=== PATIENT | female | born 2000 | race Caucasian/White ===

== ENCOUNTER → 2024-10-21 | Outpatient (CLI) | payer MEDICAID, SELFPAY ==
[2024-10-21 11:47] LABS: Absolute Lymphocyte Count 2.66 X10^3/uL (0.83-4.51); Absolute Neutrophil Count 4.9 X10^3/uL (2.0-7.7); Basophil# 0.07 X10^3/uL; Basophil% 0.8 % (0-1); Eosinophil# 0.12 X10^3/uL; Eosinophils% 1.4 % (0-5); Hematocrit 40.6 % (37-47); Hemoglobin 13.5 g/dL (12.0-15.0); Lymphocyte # 2.66 X10^3/ul (0.83-4.51); Lymphocyte % 31.9 % (19-41); Mean Corp Hgb Conc 33.3 g/dL (32-36); Mean Corpuscular Hgb 29.8 pg (27.0-32.0); Mean Corpuscular Volume 89.6 fL (81-99); Mean Platelet Vol. 9.4 fl (6.2-12.0); Monocyte# 0.52 X10^3/uL; Monocyte% 6.2 % (0-10); NRBC Flagged by Analyzer 0 % (0-5); Neutrophil # 4.94 X10^3/uL (2.7-7.7); Neutrophil % 59.3 % (47-70); Platelet Count 315 K/mm3 (150-450); RBC Distribution Width CV 12.2 % (11.6-14.6); RBC Distribution Width SD 40.1 fl (35.1-43.9); Red Blood Count 4.53 M/mm3 (4.2-5.4); White Blood Count 8.3 K/mm3 (4.4-11.0)
[2024-10-21 12:27] LABS: ALB/GLOB Ratio 1.4 RATIO (0.9-2.4); AST(SGOT) 21 U/L (<=31); Alanine Aminotransfer ALT/SGPT 16 U/L (<=34); Albumin, Serum 4.1 g/dL (3.5-5.0); Alkaline Phosphatase 66 U/L (35-104); Anion Gap 10 (5-15); BUN 15 mg/dL (4-19); BUN/Creat Ratio 21.2 RATIO (10-20); Calcium,Total 9.1 mg/dL (7.6-11.0); Carbon Dioxide 24.4 mmol/L (21.0-32.0); Chloride 105 mmol/L (98-108); Creatinine, Serum 0.72 mg/dL (0.70-1.20); EST Glomerular Filtration Rate 121 (>60); Globulin 2.8 g/dL (2.2-4.2); Glucose 91 mg/dL (70-99); Potassium 4.2 mmol/L (3.3-5.1); Protein, Total 6.9 g/dL (5.9-8.4); Sodium Level 139 mmol/L (133-145); Total Bilirubin 0.35 mg/dL (0.00-1.30)
== END | disposition home or self-care (01) ==
LOC: LAB 11:06
DX: R53.83 Other fatigue (principal)
CPT/HCPCS: 36415; 80053; 84443; 85025

== ENCOUNTER → 2024-11-21 | Outpatient (CLI) | payer MEDICAID, SELFPAY ==
[2024-11-21 10:20] LABS: Absolute Lymphocyte Count 2.79 X10^3/uL (0.83-4.51); Absolute Neutrophil Count 3.7 X10^3/uL (2.0-7.7); Basophil# 0.05 X10^3/uL; Basophil% 0.7 % (0-1); Eosinophil# 0.12 X10^3/uL; Eosinophils% 1.7 % (0-5); Hematocrit 39.6 % (37-47); Hemoglobin 13.1 g/dL (12.0-15.0); Lymphocyte # 2.79 X10^3/ul (0.83-4.51); Lymphocyte % 38.9 % (19-41); Mean Corp Hgb Conc 33.1 g/dL (32-36); Mean Corpuscular Hgb 29.2 pg (27.0-32.0); Mean Corpuscular Volume 88.2 fL (81-99); Mean Platelet Vol. 9.4 fl (6.2-12.0); Monocyte# 0.46 X10^3/uL; Monocyte% 6.4 % (0-10); NRBC Flagged by Analyzer 0 % (0-5); Neutrophil # 3.73 X10^3/uL (2.7-7.7); Platelet Count 275 K/mm3 (150-450); RBC Distribution Width CV 11.6 % (11.6-14.6); RBC Distribution Width SD 37.2 fl (35.1-43.9); Red Blood Count 4.49 M/mm3 (4.2-5.4); White Blood Count 7.2 K/mm3 (4.4-11.0)
[2024-11-21 11:05] LABS: Hemoglobin A1c 5.1 % (<=5.6)
[2024-11-21 11:55] LABS: ALB/GLOB Ratio 1.4 RATIO (0.9-2.4); AST(SGOT) 20 U/L (<=31); Alanine Aminotransfer ALT/SGPT 13 U/L (<=34); Alkaline Phosphatase 67 U/L (35-104); Anion Gap 12 (5-15); BUN 12 mg/dL (4-19); BUN/Creat Ratio 16.9 RATIO (10-20); Chloride 105 mmol/L (98-108); Cholesterol 191 mg/dL (<=190); Creatinine, Serum 0.72 mg/dL (0.70-1.20); EST Glomerular Filtration Rate 121 (>60); Globulin 2.9 g/dL (2.2-4.2); Glucose 89 mg/dL (70-99); HIV Nonreactive (Nonreactive); High Density Lipoprotein 54 mg/dL; Low Density Lipoprotein Calc. 123 mg/dL; Potassium 3.7 mmol/L (3.3-5.1); Sodium Level 140 mmol/L (133-145); Syphilis Antibodies Nonreactive (Nonreactive); Triglycerides 73 mg/dL; Very Low Density Lipoprotein 15 mg/dL (5-40); cholesterol:hdl ratio screen 3.57
[2024-11-21 12:12] LABS: Iron 44 ug/dL (50-170); Iron Binding Capacity,Total 414 ug/dL (250-450); Iron Binding Capacity,Unsat 370 ug/dL (228-428)
[2024-11-21 12:13] LABS: Ferritin 14 ng/mL (22-378); Vitamin B12 315 pg/mL (180-914); Vitamin D,25 Hydroxy 25.7 ng/mL (30-100)
[2024-11-23 09:08] LABS: HEPATITIS B SURFACE AG Negative (Negative); Hep C Antibodies Non Reactive (Non Reactive); Hepatitis A IgM Antibody Negative (Negative); Hepatitis B Core AB IgM Negative (Negative)
== END | disposition home or self-care (01) ==
PROVIDERS: Nurse Practitioner Family
DX: Z01.419 Encounter for gynecological examination (general) (routine) without abnormal findings (principal); Z11.3 Encounter for screening for infections with a predominantly sexual mode of transmission; R53.83 Other fatigue; R00.2 Palpitations; Z13.220 Encounter for screening for lipoid disorders; Z13.1 Encounter for screening for diabetes mellitus
CPT/HCPCS: 36415; 80053; 80061; 80074; 82306; 82607; 82728; 83036; 83540; 83550; 83735; 84443; 85025; 86703; 86780

== ENCOUNTER 2024-12-08 09:40 | Outpatient (RCR) | payer MEDICAID, SELFPAY ==
--- NOTE | 2024-12-08 09:00 | BH.SGPN.GN ---
Behaviors/Verbalizations/Mental Status: [] ?Eye contact is good. Motor activity is appropriate. Appearance is casual. Speech is Appropriate. Mood is anxious and depressed . Affect is constricted. Thoughts are linear and logical. No evidence of psychosis. Reviewed daily check in sheet and no reports of suicidal ideations or intent. Client Response/Progress/Benefit: [] ?Pt was an attentive though passive participant in group discussions. Attentive. Pt's first day in IOP tx and pt opted not to share today. Appearing anxious but was listening to fellow group participants as she shared. Benefited from group support, encouragement, and feedback. Will continue in IOP to prevent decompensation, promote mood stability, and increase healthy coping knowledge. Narrative Note: []
--- NOTE | 2024-12-08 10:10 | BH.SGPN.GN ---
Behaviors/Verbalizations/Mental Status: [] Eye contact is good. Motor activity is appropriate. Appearance is casual. Speech is Appropriate. Mood is euthymic. Affect is congruent. Thoughts are linear and logical. No evidence of psychosis. Client Response/Progress/Benefit: [] Pt was an active participant in group discussions. Attentive during psychoeducation on the 4 communication styles (Passive, Passive-Aggressive, Aggressive, and Assertive) and the obstacles to effective communication. Contributed during interactive discussion on the benefits of communicating effectively. Worked well with peers to identify the benefits and disadvantages to the different communication styles. Pt believes that she is primarily passive and able to connect impact has on her mental health. Benefited from increased understanding of communication styles and how these can impact effective communication. Will continue in IOP to increase healthy coping skills, challenge negative thoughts, and prevent decompensation.
--- NOTE | 2024-12-08 11:00 | BH.SGPN.GN ---
Behaviors/Verbalizations/Mental Status: []Pt alert and oriented, casually dressed and groomed. Eye contact good. Motor activity appropriate. Speech within normal limits. Affect congruent, mood anxious. Thoughts linear, logical, no signs of hallucinations or delusions. Client Response/Progress/Benefit: [] Pt responded well to session AEB Pt listening attentively to others and providing input during group discussion on the pay offs and costs of the different communication styles. Pt able to connect how current communication style impacts mental health. Connected with peers? comments about the importance of using assertive communication. Pt seemed to benefit from increasing awareness of healthy strategies to improve communication and worked with peers during the experiential activity to practice assertive communication. Pt did well to ask questions and give feedback during the activity. Will continue IOP tx to prevent decompensation, maintain safety, and gain healthy coping skills. ? Narrative Note: []
--- NOTE | 2024-12-10 09:00 | BH.SGPN.GN ---
Behaviors/Verbalizations/Mental Status: [] Client alert and oriented, casual appearance. Eye contact good. Motor activity appropriate. Speech within normal limits. Affect congruent, mood euthymic. Thoughts linear, logical, no signs of hallucinations or delusions. Reviewed client's symptom tracker, no risk for suicidal ideation, plan, or intent. Client Response/Progress/Benefit: [] Client responded well to session AEB listening to others and sharing thoughts/feelings. Client reported mental positive was being able to handle a stressful situation yesterday by using belly breathing to regulate herself. Client noted her stressor was that her EPT benefits for [employer] was not being replenished and that led to her having to be on the phone for 2-1/2 hours to get everything situated. Client noted additional mental positive as starting her laundry and took her dog for a walk which is something that she finds to be really helpful for her mood. Client noted current emotion and is proud because today she is 4 months sober. Client noted things that help her maintain sobriety have been taking it 1 day at a time, remind herself to play the tape forward during cravings, and having a higher power. Appeared to benefit from support from peers. Will continue IOP tx to reinforce healthy coping skills, challenge distortions, and prevent decompensation. Narrative Note: []
--- NOTE | 2024-12-10 10:00 | BH.SGPN.GN ---
Behaviors/Verbalizations/Mental Status: []Client alert and oriented, casually dressed. Eye contact good. Motor activity appropriate. Speech within normal limits. Affect congruent, mood anxious and depressed. Thoughts linear, logical, no signs of hallucinations or delusions. Client Response/Progress/Benefit: [] Pt was an active participant AEB taking notes and engaging in group activity. Connected with the topic of pitfalls and listened to group discussion on barriers that prevent from choosing a healthier path to mental wellness. Group worked together to identify examples of personal pitfalls. These examples included; shutting down, not asking for help, negative thinking patterns, avoidance, and isolation. Pt benefited from group as Pt learned to better identify potential barriers to improving mental health symptoms. Identified barrier of not asking for help and shutting down. Pt will continue IOP tx to prevent decompensation, improve distress tolerance, and increase self-confidence and communication. Narrative Note: []
--- NOTE | 2024-12-10 11:05 | BH.SGPN.GN ---
Behaviors/Verbalizations/Mental Status: []Client alert and oriented, casually dressed and groomed. Eye contact good. Motor activity appropriate. Speech within normal limits. Affect congruent, mood content and euthymic. Thoughts linear, logical, no signs of hallucinations or delusions. Client Response/Progress/Benefit: [] Pt receptive of session, engaged throughout AEB Pt actively listening and contributing to discussion as well as taking notes.? Pt participated in the experiential activity and did well to communicate ideas with peers and manage emotions. Pt attentive as group processed how the emotions and perspective of the group impacted the activity. Pt did well to challenge her perspective during the activity. Group worked together to identify different coping skills to help manage pitfalls. Pt identified a pitfalls they struggle with as ruminating, self-sabotaging, and perfectionism. Pt plans to work on their pitfall by ?reminding myself that two things can be true.? Benefited from identifying personal pitfalls and strategies to overcome these pitfalls. Pt will continue IOP tx to prevent decompensation, build healthy routines and coping skills, and reduce negative thought patterns. ? Narrative Note: []
--- NOTE | 2024-12-12 09:05 | BH.SGPN.GN ---
Behaviors/Verbalizations/Mental Status: [] Eye contact is good. Motor activity is appropriate. Appearance is casual. Speech is Appropriate. Mood is euthymic. Affect is full. Thoughts are linear and logical. No evidence of psychosis. Reviewed daily check in sheet and no reports of suicidal ideations or intent Client Response/Progress/Benefit: [] Pt participated at times during the group discussions. Attentive. She has left the residential facility and moved back in with family. For the time being this has improved her mental health. ? I?m still maintaining my daily routine? which consists of meditation and other preventative skills. Benefited from group support, encouragement, and feedback. Will continue in [facility] to maintain safety, increase healthy coping, and improve functioning. Narrative Note: []
--- NOTE | 2024-12-12 09:05 | BH.SGPN.GN ---
Behaviors/Verbalizations/Mental Status: [] Eye contact is good. Motor activity is appropriate. Appearance is casual. Speech is Appropriate. Mood is euthymic. Affect is full. Thoughts are linear and logical. No evidence of psychosis. Reviewed daily check in sheet and no reports of suicidal ideations or intent Client Response/Progress/Benefit: [] Pt participated at times during the group discussions. Attentive. She has left the residential facility and moved back in with family. For the time being this has improved her mental health. ? I?m still maintaining my daily routine? which consists of meditation and other preventative skills. Benefited from group support, encouragement, and feedback. Will continue in [facility] to maintain safety, increase healthy coping, and improve functioning. Narrative Note: []
--- NOTE | 2024-12-12 09:47 | PCM.BH.PSYEV ---
Charges/Coding Behavior Health Behavior Health Psychiatric Evaluation: 99803 Psych Diag Exam w/ Medical Services Intake Vital Signs 12/12/24 11:13 Height 1.65 m Weight: 86.183 kg BP 134/88 H Pulse 90 Intake Visit Reasons: PTSD, MDD Allergies amoxicillin (From Augmentin) Adverse Reaction (Verified 12/12/24 10:58) PT UNSURE OF REACTION cephalexin (From Keflex) Adverse Reaction (Verified 12/12/24 10:58) PT UNSURE OF REACTION Cephalosporins Adverse Reaction (Verified 12/12/24 10:58) PT UNSURE OF REACTION ciprofloxacin Adverse Reaction (Verified 12/12/24 10:58) PT UNSURE OF REACTION clavulanic acid (From Augmentin) Adverse Reaction (Verified 12/12/24 10:58) PT UNSURE OF REACTION Penicillins Adverse Reaction (Verified 12/12/24 10:58) PT UNSURE OF REACTION Medications ?Medication ?Instructions ?Recorded ?Confirmed ?Type atomoxetine 25 mg capsule 25 mg PO DAILY 12/12/24 12/12/24 History (Strattera) cyclobenzaprine 5 mg tablet 5 mg PO DAILY PRN muscle spasm 12/12/24 12/12/24 History desvenlafaxine 50 mg 50 mg PO DAILY 12/12/24 12/12/24 History tablet,extended release 24 hr hydroxyzine HCl 25 mg tablet 25 mg PO QHS PRN sleep 12/12/24 12/12/24 History prazosin 1 mg capsule 1 mg PO QHS 12/12/24 12/12/24 History trazodone 50 mg tablet 50 mg PO QHS PRN sleep 12/12/24 12/12/24 History Review of systems () Narrative Medical ROS: General: Denies fever/chills HENT: Denies headache, denies stuffy nose, denies sore throat EYES: Denies changes in vision Resp: Denies cough, denies shortness of breath Cardiac: Denies chest pain GI: Denies abdominal pain, denies changes in bowel, denies nausea/vomiting : Denies changes in urination Extremity: Denies swelling MSK: Denies weakness Neuro: Denies any numbness/tingling Heme: Denies any bleeding or bruising Skin: Denies rashes Psychiatric: As above Exam () Mental Status Exam- Psych () Appearance casually dressed and adequately groomed Attitude other (Cooperative but somewhat reserved) Activity/Motor Behavior other (Fidgets frequently) Speech regular rate and regular volume Mood euythmic Affect full range Thought Process linear and logical Thought Content no delusions and no hallucinations Suicidal Ideation none Homicidal Ideation none Attention intact Concentration intact Sensorium/Orientation awake and alert Memory/Cognition intact Insight fair Judgement fair Assessment & Plan () Assessment & Plan (1) MDD (major depressive disorder), recurrent episode, severe: Problem Details: Patient has history of depressed mood, anhedonia, excessive guilt, problems with concentration and energy, decreased appetite, self-injury Plan: Since getting out of residential treatment on Sunday patient reports she has actually been feeling well overall, she is not sure if this is a honeymoon period but presently feels her medications are working, denies relapses, has not had any self-injuring behaviors since she was placed back in residential, patient comfortable with keeping medications where they are at present (2) PTSD (post-traumatic stress disorder): Problem Details: Patient reports history of PTSD with problems with nightmares and flashbacks Plan: Patient reports she is doing well on prazosin and her other present medications, she would not divulge further and her PTSD history but denied any current ongoing complaints or need for additional medication changes, continue IOP program (3) Cocaine use disorder, moderate, in early remission: Plan: Continue to follow with X[facility], continue to encourage cessation (4) Alcohol use disorder, severe, in early remission: Plan: Continue to follow with [facility], continue to encourage cessation (5) Cannabis use disorder, moderate, in early remission: Plan: Continue to follow with [facility], continue to encourage cessation Plan The patient will begin IOP in Behavioral Health at [facility]. The program's structure, support, education, and therapy aim to prevent deterioration of symptoms and avoid the need for PHP or inpatient hospitalization. I have a reasonable expectation that the patient will make practical improvements in their presenting symptoms and will be discharged to a lower level of care. Visit Details Comments: Spent a total of [ ] minutes on the date of the service which included [ ]. HPI () History of Present Illness History provided by: patient Chief complaint: I feel drained HPI: Mikala is a 24y/o female who presented to [facility] IOP program for further evaluation and treatment of depression, PTSD. Patient has history of alcohol use disorder, cannabis use disorder, cocaine use disorder and was put in residential treatment August through September 2024. After she was transitioned to the transitional area she reports there was an incident that she had report and she was moved rooms and being taken out of her safe space caused her to spiral into depression and cutting behaviors. Patient would not divulge the incident that occurred but after her decompensation she was placed back in residential treatment. Reportedly she signed herself out on Sunday and has been feeling well since then and has been excited to be home where she lives with her grandma and her dog. Still on leave from work and will go back after IOP. Today she reports her mood is drained as being around people is exhausting for her but overall she has been feeling better. She is struggled with anxiety and PTSD and reports she has been depressed for as long as she can remember but will have waxing and waning of episodes. Denies depressed mood at this time. No anhedonia, somewhat poor appetite, has bizarre dreams but overall sleeps fairly well, her energy depends on the day, concentration could be better, does have guilt about living with her grandma who is paying for all of her bills. Denies SI, denies HI, denies AH/VH, denies overt brandon but occasionally will have a couple days in a row where she does feel good does not sleep as much, she difficulty describing these episodes in detail but did not seem to meet full clinical criteria for bipolar disorder, patient has anxiety all the time but a lot of times it has to do with going out and being around people or if she is out with someone get from them, denies recent panic attacks, denies OCD, has a history of restricting her diet but does not presently, patient does endorse history of PTSD with nightmares for which she is on prazosin but does not want to talk about this any further, does report she is doing fairly well with this at this time no. Current psychiatric medications: Prazosin 1 mg, Pristiq 50 mg since June, trazodone 50 mg, atomoxetine 25 mg, hydroxyzine 25 mg 3 times daily as needed Side effect concerns: Denies. Has been on most of the medications for a while with Pristiq since June and feels she is tolerating these medications well Past psychiatric treatment Hx: -Psychiatrist: Cherelle Brooke organisational psychologist at [facility] -Therapist: Beena at [facility] -Psychiatric hospitalizations: Denies -Suicide attempts: Has history of cutting and burning with no previous psych hospitalizations as above but reports 7 previous suicide attempts and reports an OD prior to her residential treatment -Medication trials: Patient is unaware of what medications she has tried in the past Substance use Hx: -Alcohol: Previously was drinking heavily and started her alcohol use at 15, reports not presently using and she recently went to residential treatment as above and got out on Sunday, again denies use since then. -Drugs: Endorses in 2021 she started with meth and then moved on to [facility] when she cannot longer get meth, she been doing cocaine for about a year but denies any relapses since her residential treatment -Rehab: Residential treatment from August to September with brief transition housing and then back to residential, out since Sunday Family Hx: -Mental illness: Patient reports her sister has depression and anxiety and PTSD, brother with depression and anxiety, father possibly with depression and previous alcohol use, mother with alcohol use and depression and anxiety Psychosocial: Presently living in [place] [facility] with her grandmother and has been for 4 years, lives with her grandmother and her dog with no one else in the house. Previously had a boyfriend whom she did drugs with but they are no longer together. Patient has no living children, did have a miscarriage in 2022 and had a D&C. Prior to her residential treatment she was working at 2 different [employer] and plans to go back after she finishes the intensive outpatient treatment. Presently grandmothers pain her bills. Endorses she does have 1 previous charge against her for disorderly conduct when she was in a hotel room with her boyfriend at the time and did not open the door for the estimating engineer, she did not further expand on this. Highest level of education is some college.
--- NOTE | 2024-12-12 10:15 | BH.SGPN.GN ---
Behaviors/Verbalizations/Mental Status: [] Pt alert and oriented, casually dressed and groomed. Eye contact good. Motor activity appropriate. Speech within normal limits. Affect congruent, mood euthymic. Thoughts linear, logical, no signs of hallucinations or delusions. Client Response/Progress/Benefit: [] Client receptive of session, actively engaged throughout AEB taking notes and providing input and examples to discussion. Appeared to connect with group topic of cognitive distortions and the impact of thought patterns on mental health, coping behaviors, and relationships. Client appeared to benefit from gaining insight on distorted thinking patterns and how this impacts overall mental health. Reports struggling with all or nothing thinking. Will continue IOP tx to increase overall functioning, prevent decompensation, and improve mood stability. Narrative Note: []
--- NOTE | 2024-12-12 10:23 | BH.DR.ITP ---
Initial Treatment Plan Patient Information Visit Information: ADMISSION DATE: EXPECTED LOS: 4-6 weeks
--- NOTE | 2024-12-12 10:23 | BH.DR.ITP ---
Initial Treatment Plan Patient Information Visit Information: ADMISSION DATE: EXPECTED LOS: 4-6 weeks
--- NOTE | 2024-12-12 11:09 | BH.NA_ITS ---
Physical Data Vital Signs Pulse Rate: 90 Blood Pressure: 134/88 Height/Weight Height: 1.65 m Weight:: 86.183 kg Weight in Pounds: 190.0 lbs Current Medication Compliance Medication Compliance Do you take your medication as prescribed?: Yes Nutritional History Appetite Nutritional Instructions: Describe your appetite:: Good Additional nutritional information:: Client denies recent change in her weight and states her appetite varies at times but is overall good. Functional Assessment Sleep Pattern Describe any problems with sleeping: Client states she sleeps about 8 hours per night. Sensory/Communication Assess Vision Problems Do you have any vision problems?: Glasses Surgical History Surgical History Have you had any surgeries? If so, list type and date:: Yes (left wrist fracture, right wrist cyst 2019, D&C 2022) Substance Abuse Substance Abuse Please describe substance abuse in the last 30 days:: Client reports she has been sober from cocaine, marijuana and alcohol since August 2024. Client states she previously drank a bottle of liquor daily, used marijuana all day long (every 30 min to 1 hour) and used 2 buzzballs of cocaine per day. Client states she currently vapes tobacco. Client states she drinks one Dr. Pepper per day with caffeine. Mental Status Summary Mental Status Significant Findings/Observations on Appearance and Mood:: Client is alert and oriented x 4. Client is casually groomed. Client is cooperative with assessment. Clients makes good eye contact. Client's voice has normal rate and volume. Client has a full affect. Client makes logical associations and has normal processing. Client denies delusions/hallucinations. Client denies SI currently, stating My mental health has been so much better since I moved home on Sunday. Suicide Assessment Suicidal Ideation Are you currently or have you been suicidal in the past?: Yes Suicidal Intentional Rating Scale (SIRS): Suicidal thoughts (past) (history of suicide attempts and SI, denies at this time) Physician Notification Past Psychiatric History MH Treatment Hx Past Psychiatric Medications:: Client states she has been on many but does not know the names of them. Age of first mental health symptoms: Client states she was first on medication for mental health around age 17. Describe (age, circumstance, etc) any past hospitalizations: Client denies hospitalizations for mental health, but does state she has had several suicide attempts in the past with the last being in August 2024 with an overdose attempt Current providers for mental health treatment (counselor, psychiatrist, outsole caser, etc.): Beena at [facility] for counseling, Cherelle Garcia [employer] MANA[employer] at [facility] for psychiatry Fall Risk Assessment Age Age: Less than 60 Mental Status Mental Status: Willing & able to ask for assistance when needed Physical Status Physical Status: No problems Impairments Impairments: None Elimination Elimination: Continent AND independent Gait or Balance Gait or Balance: Walks independently Hx of Falls History of falls in the past 6 months: No known history Medications/Substances Psychotropics:: Antidepressants and Stimulants Medications/substances used within the past 24 hours or ordered to administer: 1-2 of the medications/substances listed above Total Score Total Points:: 1 RN Summary of Impressions Impressions Recommendations Impressions: Psychiatric Issues: Major Depressive Disorder, recurrent, severe. PTSD. Cannabis use disorder, moderate, in early remission. Alcohol use disorder, severe, in early remission. Cocaine use disorder, moderate, in early remission. Level of Care How do the client's current symptoms and functional deficits support need for this level of care?: Client was referred to IOP by her outpatient substance abuse therapist for self-harm and mental health affecting her ability to stay sober from drugs/alcohol. Client states she had been in a residential program from August until August and through a substance abuse PHP. Client had been back in residential recently, and states she just went home Sunday to live with her grandma. Client states she mentally feels much better now that she is home. Client states she hasn't self-harmed in a few weeks and denies having any open areas from cutting. Client does report having some panic attacks in the previous weeks. Client had been having some fleeting suicidal thoughts, but states she has not since she has been home this week. IOP will promote gains and prevent further decompensation while providing social support and skills training.
[2024-12-12 11:13] VITALS: BP 134/88; PULSE 90
--- NOTE | 2024-12-12 11:15 | BH.SGPN.GN ---
Behaviors/Verbalizations/Mental Status: [] Pt alert and oriented, casually dressed and groomed. Eye contact good. Motor activity appropriate. Speech within normal limits. Affect congruent, mood euthymic. Thoughts linear, logical, no signs of hallucinations or delusions. Client Response/Progress/Benefit: [] Client responded well to session AEB input and examples during group activity. Group discussed and practiced methods of reframing cognitive distortions. Client participated in identifying cognitive distortions when examples were provided. Client discussed in group the different strategies to overcome the distortions. Client identified learning better which distortions naturally impact her mental health. Will continue tx to improve distress tolerance skill application, self-care, and prevent decompensation. Narrative Note: []
--- NOTE | 2024-12-12 15:07 | BH.DR.ITP ---
Initial Treatment Plan Patient Information Visit Information: ADMISSION DATE: EXPECTED LOS: 6-8 weeks Diagnoses:: MDD, PTSD, polysubstance abuse Problems/Symptoms Problem #1:: MDD Symptom:: Patient has history of depressed mood, anhedonia, excessive guilt, problems with concentration and energy, decreased appetite, self-injury Problem #2:: PTSD Symptom:: Nightmares, flashbacks Problem #3:: Polysubstance abuse Symptom:: in early remission
--- NOTE | 2024-12-16 09:05 | BH.SGPN.GN ---
Behaviors/Verbalizations/Mental Status: [] Pt alert and oriented, casually dressed and groomed. Eye contact good. Motor activity appropriate. Speech within normal limits. Affect congruent, mood euthymic. Thoughts linear, logical, no signs of hallucinations or delusions. Reviewed pt?s symptom tracker, no risk for suicidal ideation, plan, or intent 12/16/24. Client Response/Progress/Benefit: []Pt was an active participant in group discussions. Attentive. Able to identify mental health wins including practicing self-care more consistently and getting the chance to get vegetable plants with a friend yesterday. Pt's stressor today is ?I almost didn?t see my dad on Father?s Day because I was feeling resentment.? Pt shared that talking about this with her therapist was helpful. The group offered pt encouragement and emotional support. Pt is feeling goofy? this morning. Pt receptive to feedback from peers which pt reported was helpful. Progress noted. Benefited from group support, encouragement, and feedback. Will continue IOP tx to prevent relapses, increase distress tolerance skills, and improve daily functioning. ?? Narrative Note: []
--- NOTE | 2024-12-16 10:00 | BH.SGPN.GN ---
Behaviors/Verbalizations/Mental Status: []Pt alert and oriented, casually dressed and groomed. Eye contact good. Motor activity appropriate. Speech within normal limits. Affect congruent, mood content. Thoughts linear, logical, no signs of hallucinations or delusions. Client Response/Progress/Benefit: [] Pt participated in the group discussions AEB providing input and taking notes. Attentive during psychoeducation Goal Setting. Participated during the discussion on common barriers. Pt worked with group to identify common barriers to goal setting and pt reported personal barriers as limited follow-through, negative thinking, and giving up. Group also identified benefits of goals, which included: sense of purpose, improved self-confidence, more motivation for other goals, sense of accomplishment, and improved mental health. Pt identified personal benefits to goal setting. Benefited from increased awareness of mental health benefits of goals as well as psychoeducation on SMART goal criteria. Will continue in IOP to prevent decompensation, gain healthy coping skills, and improve mood stability. ?? Narrative Note: []
--- NOTE | 2024-12-16 10:36 | BH.MTP ---
Master Treatment Plan Patient Information Program Physician:: Dr. Megha Perdomo Primary Therapist:: Leah ARROYO Psychiatric Diagnoses Psychiatric Diagnoses:: MDD (major depressive disorder), recurrent episode, severe F33.2; PTSD; Cocaine use disorder, moderate, in early remission; Alcohol use disorder, severe, in early remission; Cannabis use disorder, moderate, in early remission. Diagnosis Code(s):: F33.2 Estimated LOS Estimated LOS (in weeks):: 6 Problem/Goal #1 Problem/Goal #1 Stated Goal:: Pt will increase mood stability by reducing hopelessness, worthlessness, and passive SI caused by MDD. Description of Barriers: Pt has a significant history of substance use and abuse. Pt is currently in early remission for marijuana, cocaine, and alcohol. Pt has history of suicide attempts and self-injurious behaviors to cope. Functional Impact: Pt is a 24-year-old female with who was referred to [facility] tx by her outpatient therapist due to self-injurious behaviors and mental health symptoms impacting pt's sobriety. Pt has history of PTSD, MDD, and polysubstance abuse. At admission, pt endorses increased sleep, decreased appetite, low energy, low motivation, hopelessness, isolation, avoidance, and anhedonia. Pt also reports panic attacks twice weekly. Pt denies active SI, but she shared that she has almost daily thoughts of wishing she would not wake up. Pt's symptoms are impacting her ability to maintain sobriety and engage in ADLs. Goal Relevant Strengths/Supports: Pt is established with Cherelle contreras cook enchilada at [facility] for medication management and she sees Beena at [facility] for individual counseling. Pt completed a residential program. Objectives Objective #1: Stated Objective: Pt will learn and utilize 2-3 healthy coping strategies to better manage depressive symptoms and reduce suicidal ideations as shown by a decrease of DMS-5 symptoms for depression. Interventions: Through group and individual sessions, therapist will help pt identify triggers and warning signs of depression including emotional, physical, and behavioral changes. Therapist will teach pt various coping skills to manage symptoms and give pt tangible resources to use to regulate emotions. Therapist will use cognitive restructuring techniques and help pt gain awareness of negative thoughts that reinforce guilt and depression. Therapist will provide psychoeducation on maintenance cycles and help pt learn ways to break unhealthy maintenance cycles. Therapist will help pt incorporate behavioral activation and assist pt in setting SMART goals. Discharge Criteria: Pt will have met this goal when can report learning and using at least 2 coping skills to manage depressive symptoms and reduce isolation. Additionally, pt will have met this goal when pt's DSM-5 scores for depression decrease Target Date: 01/19/25 Review Date: 12/29/24 Status: open Objective #2: Stated Objective: Pt will identify 2 triggers and 2 coping skills to use when pt experiences mood dysregulation and has increased urges to engage in unhealthy, impulsive coping skills. Interventions: Through individual and group counseling pt will be provided with education on healthy coping skills to manage mood symptoms, impulse, and crisis behaviors. Therapist will provide information on healthy alternatives to emotion release. Individual therapist will teach pt DBT techniques to increase emotional regulation and mindfulness. Therapist will also engage pt to use self-compassion while working to change behaviors. Discharge Criteria: Pt will have accomplished this goal when pt can identify at least 2 triggers and 2 coping skills to increase mood stability and reduce unhealthy action urges. Target Date: 01/19/25 Review Date: 12/29/24 Status: open Problem/Goal #2 Problem/Goal #2 Stated Goal:: Will reduce intensity of anxiety and panic through increasing and distress tolerance skills Description of Barriers: Pt has a significant history of substance use and abuse. Pt is currently in early remission for marijuana, cocaine, and alcohol. Pt has history of suicide attempts and self-injurious behaviors to cope. Functional Impact: Pt is a 24-year-old female with who was referred to [facility] tx by her outpatient therapist due to self-injurious behaviors and mental health symptoms impacting pt's sobriety. Pt has history of PTSD, MDD, and polysubstance abuse. At admission, pt endorses increased sleep, decreased appetite, low energy, low motivation, hopelessness, isolation, avoidance, and anhedonia. Pt also reports panic attacks twice weekly. Pt denies active SI, but she shared that she has almost daily thoughts of wishing she would not wake up. Pt's symptoms are impacting her ability to maintain sobriety and engage in ADLs. Goal Relevant Strengths/Supports: Pt is established with Cherelle contreras cook enchilada at [facility] for medication management and she sees Beena at [facility] for individual counseling. Pt completed a residential program. Objectives Objective #1: Stated Objective: Pt will identify 2-3 anxiety triggers and 2 coping skills to use when feeling anxious to manage anxiety as shown by reducing DSM-5 scores for anxiety Interventions: Therapist will provide education on anxiety, avoidance behaviors, and maintenance cycles. Therapist will help pt explore personal symptoms and warning signs of anxiety. Therapist will teach pt coping skills to improve emotional regulation, mindfulness, and distress tolerance to help pt cope with anxiety in the moment. Discharge Criteria: Pt will have accomplished this goal when she can identify at least 2 triggers and report using 2 coping skills to manage anxiety. Additionally, pt will have accomplished this goal AEB reduction of DSM-5 scores for anxiety. Target Date: 01/19/25 Review Date: 12/29/24 Status: open Objective #2: Stated Objective: Pt will increase ability to manage stressors and anxiety by gaining 2-3 distress tolerance skills. Interventions: Through group and individual therapy, pt will learn various coping skills to help manage stress and anxiety. Therapist will utilize DBT distress tolerance skills to increase awareness and give pt tools to more effectively manage anxiety. Therapist will provide psychoeducation on emotional regulation and help pt identify unhealthy coping skills she wants to change. Discharge Criteria: Pt will have accomplished this goal when can report improved ability to manage stressors and identify at least 2 distress tolerance skills. Target Date: 01/19/25 Review Date: 12/29/24 Status: open
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
--- NOTE | 2024-12-16 10:37 | BH.MDN ---
Multi-Disciplinary Note Note 30-min Individual: Time Started:: 11:25 Date: 12/16/24 Purpose of session/treatment goals addressed:: To gather information on pt's current stressors, symptoms, triggers, history, and tx goals. Another goal was to build rapport and provide emotional support. Eye Contact:: Good Motor Activity:: Appropriate Appearance:: Casual Speech:: Appropriate Mood:: Anxious Affect:: Congruent Thoughts:: Linear, Logical and No evidence of hallucinations/delusions noted Staff Interventions:: rapport building, strengths perspective, treatment planning and goal setting Client Response:: Pt responded well to session, open to meeting with therapist. Pt shared she enjoys IOP so far and she has been in therapy which has been helpful. Pt stated what helps the most in therapy so far is shadow work and looking into family systems. Pt stated she does better with writing out her thoughts and was receptive to doing some writing about her IOP goals. Pt lives with her grandmother and she is currently on leave from work at [employer]. Pt shared she likes this job and they have been nice to her, but pt is worried when she goes back she will just keep having panic attacks. Pt shared she has been having a lot of dissociative episodes lately and she loses a lot of my day. Pt reported she would like to work on this and work on being more social. 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 Pt will continue IOP tx and meet with therapist next week. Risks/Concerns:: Pt denies any suicidal ideations, plan, or intent. Pt denies any thoughts of . Progress Toward Goals/Plan:: Pt is responding well to IOP tx AEB pt reporting benefitting from the social support and group topics. Pt reports she has been seeing a therapist at [facility] and she finds this helpful. Pt shared her symptoms have been impacting her ability to make connections, be present in life, and move forward. Pt was receptive to homework of journaling what she would like to work on as pt could not think of goals during session. Pt will continue IOP tx to prevent decompensation, improve distress tolerance skills, and gain healthy support. Time Stopped:: 11:45
--- NOTE | 2024-12-16 10:37 | BH.MDN ---
Multi-Disciplinary Note Note 30-min Individual: Time Started:: 11:25 Date: 12/16/24 Purpose of session/treatment goals addressed:: To gather information on pt's current stressors, symptoms, triggers, history, and tx goals. Another goal was to build rapport and provide emotional support. Eye Contact:: Good Motor Activity:: Appropriate Appearance:: Casual Speech:: Appropriate Mood:: Anxious Affect:: Congruent Thoughts:: Linear, Logical and No evidence of hallucinations/delusions noted Staff Interventions:: rapport building, strengths perspective, treatment planning and goal setting Client Response:: Pt responded well to session, open to meeting with therapist. Pt shared she enjoys IOP so far and she has been in therapy which has been helpful. Pt stated what helps the most in therapy so far is shadow work and looking into family systems. Pt stated she does better with writing out her thoughts and was receptive to doing some writing about her IOP goals. Pt lives with her grandmother and she is currently on leave from work at [employer]. Pt shared she likes this job and they have been nice to her, but pt is worried when she goes back she will just keep having panic attacks. Pt shared she has been having a lot of dissociative episodes lately and she loses a lot of my day. Pt reported she would like to work on this and work on being more social. Pt reported having social anxiety and finding it difficult to potato picker on social cues. Pt will continue IOP tx and meet with therapist next week. Risks/Concerns:: Pt denies any suicidal ideations, plan, or intent. Pt denies any thoughts of . Progress Toward Goals/Plan:: Pt is responding well to IOP tx AEB pt reporting benefitting from the social support and group topics. Pt reports she has been seeing a therapist at [facility] and she finds this helpful. Pt shared her symptoms have been impacting her ability to make connections, be present in life, and move forward. Pt was receptive to homework of journaling what she would like to work on as pt could not think of goals during session. Pt will continue IOP tx to prevent decompensation, improve distress tolerance skills, and gain healthy support. Time Stopped:: 11:45
--- NOTE | 2024-12-19 09:00 | BH.SGPN.GN ---
Behaviors/Verbalizations/Mental Status: [] Pt alert and oriented, casually dressed and groomed. Eye contact fair. Motor activity appropriate. Speech within normal limits. Affect congruent, mood sad and uncomfortable. Thoughts linear, logical, no signs of hallucinations or delusions. Reviewed pt?s symptom tracker, no risk for suicidal ideation, plan, or intent 12/19/24. Client Response/Progress/Benefit: []Pt was an active participant in group discussions. Attentive. Able to identify mental health wins including ?I don?t really have much today, I can?t think of wins.? The group helped pt identify wins such as getting to IOP today even though she is in a lot of pain today and she wanted to cancel. Pt's stressor today is ?I?m in a lot of pain today.? The group offered pt encouragement and emotional support which pt reported was helpful. Pt is feeling sad and numb? this morning. Pt receptive to feedback from peers which pt reported was helpful. Progress noted. Benefited from group support, encouragement, and feedback. Will continue IOP tx to increase distress tolerance skills, reduce negative self-talk, and improve mood stability. Narrative Note: []
--- NOTE | 2024-12-19 10:10 | BH.SGPN.GN ---
Behaviors/Verbalizations/Mental Status:?[] Client alert and oriented, casually dressed and groomed. Eye contact good. Motor activity appropriate. Speech within normal limits. Affect congruent, mood euthymic. Thoughts linear, logical, no signs of hallucinations or delusions. Client Response/Progress/Benefit:?[] Pt engaged in session AEB client listening attentively to peers and providing input. Attentive and contributed to discussion as group worked on defining?self-confidence?and identifying benefits of?self-confidence, as well as factors that can effect?self-confidence?levels. Pt was an active participant in activity in which the group read and processed each right on the Personal Bill of Rights worksheet. Pt identified the rights they struggle with believing. Benefited from increased education on?self-confidence?and what effects it. Pt will continue IOP tx to improve distress tolerance, continue use of healthy coping skills, and prevent decompensation.
--- NOTE | 2024-12-19 11:15 | BH.SGPN.GN ---
Behaviors/Verbalizations/Mental Status: [] Client alert and oriented, casually dressed and groomed. Eye contact good. Motor activity appropriate. Speech within normal limits. Affect congruent, mood depressed. Thoughts linear, logical, no signs of hallucinations or delusions. Client Response/Progress/Benefit: [] Pt engaged in session AEB client listening attentively to peers and providing input. Attentive and contributed to discussion as group worked on identifying thought patterns and behaviors that negatively effect self-confidence. Pt identified behaviors that effect their confidence as: self-judgement and ignoring responsibilities. Engaged in confidence building activity and worked with the group to identify strategies for improving self-confidence. Pt identified plans to begin daily affirmations as a means of improving own self-confidence. Benefited from increased education on self-confidence building skills. Pt will continue IOP tx to increase self-confidence, improve emotional regulation skills, and prevent decompensation. Narrative Note: []
--- NOTE | 2024-12-23 09:05 | BH.SGPN.GN ---
Behaviors/Verbalizations/Mental Status: [] Eye contact is good. Motor activity is appropriate. Appearance is casual. Speech is Appropriate. Mood is euthymic. Affect is full. Thoughts are linear and logical. No evidence of psychosis. Reviewed daily check in sheet and no reports of suicidal ideations or intent. Client Response/Progress/Benefit: [] Pt participated at times during the group discussions. Attentive. Able to identify healthy habits and mental health wins. Mood continues to stabilize since transitioning from residential back to living with her GMA. ? No panic attacks?. ? I?m adjusting well?. Struggles with motivation. Isolative behaviors which she attributes to heat. Mood is content. Progress noted. Benefited from group support, encouragement, and feedback. Will continue in IOP to prevent decompensation, increase healthy coping, and stabilize anxiety/depression. Narrative Note: []
--- NOTE | 2024-12-23 10:15 | BH.SGPN.GN ---
Behaviors/Verbalizations/Mental Status: []Pt alert and oriented, neatly dressed and groomed. Eye contact good. Motor activity appropriate. Speech within normal limits. Affect congruent, mood content, anxious. Thoughts linear, logical, no signs of hallucinations or delusions. Client Response/Progress/Benefit: [] Pt participated during the group discussion, providing input and remaining attentive during psychoeducation. Participated in experiential activity. Pt contributed during interactive discussion on the consequences of unhealthy expression of emotions. Worked with group to identify several consequences which included hurting relationships and isolating oneself. Contributing during interactive discussion on common potholes to effectively communicating. Pt was able to relate and make connections between the experiential activity and the overall topic, managing emotions through activity by positive self-talk and encouragement from the group. Benefited from increased awareness of how stress and emotions can impact one's ability to communicate. Will continue in IOP to prevent decompensation, increase emotional regulation skills, and improve daily functioning. Narrative Note: []
--- NOTE | 2024-12-23 11:15 | BH.SGPN.GN ---
Behaviors/Verbalizations/Mental Status: [] Eye contact is good. Motor activity is appropriate. Appearance is casual. Speech is Appropriate. Mood is depressed. Affect is congruent. Thoughts are linear and logical. No evidence of psychosis. Client Response/Progress/Benefit: [] Client engaged in session AEB client listening attentively to peers and providing input. Attentive during psychoeducation on 4 zones of regulation. Pt able to identify feelings and behaviors for each zone. Pt identified coping skills one can use to support self in each zone. Pt stated belief that pt is in the yellow zone today. Pt reports to pursue self-care, priority setting, rest, and set boundaries to move herself closer to the green zone. Benefited from increased education on zones of regulation or stages of alertness for emotions and healthy coping skills to use for each zone. Pt will continue IOP tx to prevent decompensation/re-admission to psych unit, stablize mood, and improve functioning. Narrative Note: []
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
--- NOTE | 2024-12-24 10:30 | BH.MDN ---
Multi-Disciplinary Note Note 30-min Individual: Time Started:: 10:30 Date: 12/24/24 Purpose of session/treatment goals addressed:: Used the session to review current symptoms and progress. Addressed treatment plan goal 2, obj 2. Eye Contact:: Poor Motor Activity:: Restless Appearance:: Casual Speech:: Appropriate Mood:: Anxious Affect:: Congruent Staff Interventions:: psychoeducation on: (anxiety triggers, social skills), rapport building, strengths perspective and other (introduced fear ladder associated with social anxiety) Client Response:: Pt reports she is gaining insight and skills from [facility] level of care. I like it. She denies significant distress or anxiety, however admits that she doesn't leave the house and is avoiding most stressful events. Aside from IOP and AA meetings she spends majority of her time alone. Her grandmother works throughout the day. Primary social contact is her father. Her baseline is an introvert whose social battery is drained easily. She finds social interactions, conversations, and events to be overwhelming, anxiety-producing, and overstimulating. This can lead to panic attacks at work and while in public. She last worked previous to entering substance abuse treatment in July and discussed a significant anxiety trigger as believing that her co-workers didn't think she could handle her job responsibilities. She was scheduled to return to work after completing SA treatment, however 3 days before returning she had mental health decompensation which eventually led to -[facility] admission. Other anxiety triggers include going to local stores ([employer], [employer], etc.) alone. No way I could do that. Avoiding anxiety triggers and stressful events for fear of panic which has resulted in isolation. Low confidence in her social skills and ability to have conversations with others. Reports constantly thinking about her non-verbals and social skills even while talking with others. Risks/Concerns:: Denies SI, plan, or intent. No risks or concerns Progress Toward Goals/Plan:: Progress reported. Consistent and engaged in IOP. Reporting benefits. However is avoiding most stressful events and spending time mostly alone. Avoiding anxiety triggers like work, social interactions outside of family, and local places ([employer]). Hyper focused on her lack of social skills and non-verbals. Therapist pointed out that she does well with these skills in effort to increase confidence. No overt or significant social skills deficit noted outwardly. She is working with her outpatient therapist on Autism assessment and diagnosis. Increased awareness of anxiety triggers. Open to creating exposure goals and fear ladder. Will continue in IOP to prevent decompensation, stabilize mood, increase healthy coping, and improve functioning.
--- NOTE | 2024-12-24 10:30 | BH.MDN ---
Multi-Disciplinary Note Note 30-min Individual: Time Started:: 10:30 Date: 12/24/24 Purpose of session/treatment goals addressed:: Used the session to review current symptoms and progress. Addressed treatment plan goal 2, obj 2. Eye Contact:: Poor Motor Activity:: Restless Appearance:: Casual Speech:: Appropriate Mood:: Anxious Affect:: Congruent Staff Interventions:: psychoeducation on: (anxiety triggers, social skills), rapport building, strengths perspective and other (introduced fear ladder associated with social anxiety) Client Response:: Pt reports she is gaining insight and skills from [facility] level of care. I like it. She denies significant distress or anxiety, however admits that she doesn't leave the house and is avoiding most stressful events. Aside from IOP and AA meetings she spends majority of her time alone. Her grandmother works throughout the day. Primary social contact is her father. Her baseline is an introvert whose social battery is drained easily. She finds social interactions, conversations, and events to be overwhelming, anxiety-producing, and overstimulating. This can lead to panic attacks at work and while in public. She last worked previous to entering substance abuse treatment in July and discussed a significant anxiety trigger as believing that her co-workers didn't think she could handle her job responsibilities. She was scheduled to return to work after completing SA treatment, however 3 days before returning she had mental health decompensation which eventually led to -[facility] admission. Other anxiety triggers include going to local stores ([employer], [employer], etc.) alone. No way I could do that. Avoiding anxiety triggers and stressful events for fear of panic which has resulted in isolation. Low confidence in her social skills and ability to have conversations with others. Reports constantly thinking about her non-verbals and social skills even while talking with others. Risks/Concerns:: Denies SI, plan, or intent. No risks or concerns Progress Toward Goals/Plan:: Progress reported. Consistent and engaged in IOP. Reporting benefits. However is avoiding most stressful events and spending time mostly alone. Avoiding anxiety triggers like work, social interactions outside of family, and local places ([employer]). Hyper focused on her lack of social skills and non-verbals. Therapist pointed out that she does well with these skills in effort to increase confidence. No overt or significant social skills deficit noted outwardly. She is working with her outpatient therapist on Autism assessment and diagnosis. Increased awareness of anxiety triggers. Open to creating exposure goals and fear ladder. Will continue in IOP to prevent decompensation, stabilize mood, increase healthy coping, and improve functioning.
--- NOTE | 2024-12-24 11:15 | BH.SGPN.GN ---
Behaviors/Verbalizations/Mental Status: []Pt alert and oriented, casually dressed and groomed. Eye contact good. Motor activity appropriate. Speech within normal limits. Affect congruent, mood anxious and dysthymic. Thoughts linear, logical, no signs of hallucinations or delusions. Client Response/Progress/Benefit: [] Pt responded well to session AEB taking notes and contributing to discussion throughout. Pt engaged as group continued discussion on acceptance and the mental health benefits of practicing acceptance. Pt and peers identified what makes acceptance challenging and pt completed a self-reflection exercise on what is hard to accept in pt's life. Pt identified something that is currently hard to accept as needing financial assistance from her family. Client stated by not accepting this it leads to feeling like a burden, anxiety, and guilt. Group identified strategies to increase acceptance. Pt noted wanting to work on self-compassion and forgiveness as a strategy for improving acceptance in this area. Pt appeared to benefit from gaining insight and learning strategies to increase acceptance. Pt will continue IOP tx to improve insight, increase mood stability, and prevent decompensation. Narrative Note: []
--- NOTE | 2024-12-26 10:10 | BH.SGPN.GN ---
Behaviors/Verbalizations/Mental Status: [] Eye contact is good. Motor activity is appropriate. Appearance is casual. Speech is Appropriate. Mood is euthymic. Affect is congruent. Thoughts are linear and logical. No evidence of psychosis. Client Response/Progress/Benefit: [] Pt semi engaged participant AEB listening to others, engaging in activity, and providing feedback at times. Attentive during psychoeducation that provided insight into obstacles that impede mental wellness. Pt shared with group current mental health reality and desired mental health reality. Identified barriers to desired reality include: Overthinking, fear of failure, and foreboding tre.. Benefited from taking look at current mental health state and obstacles for progress. Pt to continue IOP tx to promote use of healthy coping skills, challenge distortions, and prevent decompensation.
--- NOTE | 2024-12-26 11:10 | BH.SGPN.GN ---
Behaviors/Verbalizations/Mental Status: [] Eye contact is good. Motor activity is appropriate. Appearance is casual. Speech is Appropriate. Mood is euthymic. Affect is congruent. Thoughts are linear and logical. No evidence of psychosis. Client Response/Progress/Benefit: [] Pt was an engaged participant in group discussion and activity. Worked with group to identify strategies to help overcome barriers and obstacles to desired reality. Group developed strategies for the common barriers. Identified personal barriers to desired reality and choose one obstacle to work on. Pt stated wanting to work on barrier of fear of uncertainty by using opposite action and challenging what if thoughts. Pt seemed to benefit from increased repertoire of healthy coping skills/strategies to overcome common barriers to moving forward. Pt is to continue IOP increase functioning, challenge distortions, improve mood stability, and prevent decompensation. Narrative Note: []
== END 2024-12-29 23:59 ==
LOC: BHIOP 09:40
PROVIDERS: Referring Provider Internal Medicine; Visit Provider Internal Medicine
DX: F33.2 Major depressive disorder, recurrent severe without psychotic features (principal); F43.10 Post-traumatic stress disorder, unspecified; F10.91 Alcohol use, unspecified, in remission; F12.91 Cannabis use, unspecified, in remission; F14.91 Cocaine use, unspecified, in remission
CPT/HCPCS: H2012; H2020; S9480; 90832

== ENCOUNTER 2024-12-30 07:17 | Outpatient (RCR) | payer MEDICAID, SELFPAY ==
--- NOTE | 2025-01-01 11:26 | BH.COMM ---
Communication Note Communication with Client Communication Note: Pt was out sick all week and was unable to meet with her individual IOP therapist.
--- NOTE | 2025-01-01 13:31 | BH.TPR ---
Treatment Plan Review Demographics Date of Admission:: 12/08/24 Date of Treatment Plan Review:: 01/01/25 Admitting Diagnoses:: MDD (major depressive disorder), recurrent episode, severe F33.2; PTSD; Cocaine use disorder, moderate, in early remission; Alcohol use disorder, severe, in early remission; Cannabis use disorder, moderate, in early remission. Current Diagnoses:: MDD (major depressive disorder), recurrent episode, severe F33.2; PTSD; Cocaine use disorder, moderate, in early remission; Alcohol use disorder, severe, in early remission; Cannabis use disorder, moderate, in early remission. Patient Status Patient's Response to Treatment:: Pt has responded well to session AEB consistently attending IOP and engaging in both individual and group therapy sessions. Pt consistently completes homework provided from individual counseling. Pt contributes actively during group discussions, takes notes, appears to listen to others, and engages in group activities. Pt's overall DSM-5 scores have decreased by 71% since admission and she reports finding benefit from the coping skills so far. Pt has also been able to maintain sobriety from all substances expect vaping which is significant. Status of Current Problems and Symptoms: Pt's symptoms have decreased significantly since admission and, but pt reports that December is historically not a good month as pt has faced many traumas and stressors in the past during this month. Pt reports that she is coping well so far, but these stressors are weighing on pt emotionally. Pt still has ongoing stressors with work, finances, grief, maintaining sobriety, and her family. Progress Problem #1: Problem Name:: Depression, SI, and hopelessness. Status of Goals:: Objective 1- complete with ongoing work encouraged. Pt's DSM-5 scores for depression have decreased by 83% since admission. Pt reports using opposite action, talking to healthy supports, and thought challenging. Objective 2- in progress. Pt is gaining more awareness of her emotional urges and typical responses. This is helping pt pick different responses to improve emotional regulation. Team Recommendations:: Team recommends continued goals and objectives to reinforce skills and reduce symptoms. Team recommends pt continue working on combating distortions, using opposite action, and identifying if she wants to set boundaries with family. Problem #2: Problem Name:: Panic, anxiety, and low distress tolerance. Status of Goals:: objective 1- complete with ongoing work encouraged. Pt's DSM-5 scores for anxiety have decreased by 56% since admission and symptoms of dissociation have decreased by 63%. Pt reports using grounding, self-talk, and spending time with healthy supports. objective 2- in progress. Pt is continuing to work on building distress tolerance skills and she has done well to use calming skills or opposite action to avoid relapse. Team Recommendations:: Treatment team encourages pt to continue working on distress tolerance skills, verbalizing boundaries and setting boundaries, grounding skills, avoiding substances that make her emotional regulation worse, and practicing self-talk.
--- NOTE | 2025-01-06 09:00 | BH.SGPN.GN ---
Behaviors/Verbalizations/Mental Status: [] Client alert and oriented, casual appearance. Eye contact good. Motor activity appropriate. Speech within normal limits. Affect congruent, mood anxious/?stressed?. Thoughts linear, logical, no signs of hallucinations or delusions. Reviewed client's symptom tracker, no risk for suicidal ideation, plan, or intent. Client Response/Progress/Benefit: [] Client responded well to session AEB listening to others and sharing thoughts/feelings. Client reported mental positive was being able to use opposite action and remind herself of the benefits to get to group this morning. Reports feeling more tired this morning and struggled with getting out of bed. Additional win noted as spending time with her father and not isolating. Stressor identified as not wanting ot be social today. Appeared to benefit from support from peers. Will continue IOP tx to reinforce healthy coping skills, challenge distortions, and prevent decompensation. Narrative Note: []
--- NOTE | 2025-01-06 10:05 | BH.SGPN.GN ---
Behaviors/Verbalizations/Mental Status: []Pt alert and oriented, neatly dressed and groomed. Eye contact fair. Motor activity appropriate. Speech within normal limits. Affect congruent, mood anxious. Thoughts linear, logical, no signs of hallucinations or delusions Client Response/Progress/Benefit: [] Pt took notes and contributed to group discussions. Attentive during psychoeducation on growth mindset. Interactive group discussion on fixed mindset in which group verbalized their current fixed mindsets and how they affect their mental health. Pt shared common fixed mindset thoughts they have. Pt shared a personal fixed thought I'll never be good enough.? Pt able to connect negative impact fixed thoughts have on functioning. Pt benefited from increased awareness of growth mindset and fixed thoughts and how fixed thoughts impact their mental health. Will continue IOP tx to promote healthy coping skills, challenge negative thoughts, and prevent decompensation.
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
--- NOTE | 2025-01-07 09:00 | BH.SGPN.GN ---
Behaviors/Verbalizations/Mental Status: []Pt alert and oriented, neatly dressed and groomed. Eye contact fair. Motor activity appropriate. Speech within normal limits. Affect congruent, mood euthymic. Thoughts linear, logical, no signs of hallucinations or delusions. Reviewed pt?s symptom tracker, no risk for suicidal ideation, plan, or intent 01/07/25. Client Response/Progress/Benefit: [] Pt was an active participant in group discussions. Attentive. Able to identify mental health wins including ?I?m going to see my sister for a few days? and looking forward to going for some hikes while she is visiting her sister. ?Pt's stressor today is ?packing for my trip.? The group offered pt encouragement and emotional support which pt reported was helpful. Pt is feeling tired.? this morning. Pt receptive to feedback from peers. Benefited from group support, encouragement, and feedback. Progress noted. Will continue IOP tx to promote use of healthy coping skills, maintain sobriety, and reduce negative self-talk. Narrative Note: []
--- NOTE | 2025-01-07 10:15 | BH.SGPN.GN ---
Behaviors/Verbalizations/Mental Status: [] Client alert and oriented, casually dressed and groomed. Eye contact good. Motor activity appropriate. Speech within normal limits. Affect congruent, mood anxious and depressed. Thoughts linear, logical, no signs of hallucinations or delusions. Client Response/Progress/Benefit: [] Client responded well to session AEB contributing to discussion, taking notes, and listening attentively to others. Group discussed the benefits of managed anger and anger as a secondary emotion. Client participated in anger iceberg discussion. Group reported outward personal signs of anger as lashing out verbally, physical fights, destruction of property, self-harm, and self-sabotage. Group Identified underlying emotions that contribute to anger including being dismissed, rejection, assumptions, being lied too, and micromanaging. Appeared to benefit from increased knowledge of the underlying emotions that impact anger and increased self-awareness of the internal and external consequences of anger. Client will continue IOP program to prevent decompensation, increase healthy coping, and improve functioning. Narrative Note: []
--- NOTE | 2025-01-07 11:15 | BH.SGPN.GN ---
Behaviors/Verbalizations/Mental Status: [] client alert and oriented, casually dressed and groomed. Eye contact good. Motor activity appropriate. Speech within normal limits. Affect congruent, mood euthymic. Thoughts linear, logical, no signs of hallucinations or delusions. Client Response/Progress/Benefit: [] Client was an engaged participant throughout group AEB client providing input throughout discussion. Client contributed to the continued discussion of how people express anger as well as the underlying emotions of anger. Client participated in group activity that highlighted strategies to cope with anger. Group brainstormed healthy coping skills to help prevent anger and cope with it in the moment which included: mindfulness, deep breathing, journaling, going outside, and music. Client appeared to benefit from brainstorming with the group potential strategies to manage anger in healthy ways. Recommended continued IOP to promote healthy coping skills, challenge negative thoughts, and prevent decompensation.
--- NOTE | 2025-01-13 09:00 | BH.SGPN.GN ---
Behaviors/Verbalizations/Mental Status: [] Client alert and oriented, casual appearance. Eye contact fair. Motor activity appropriate. Speech within normal limits. Affect congruent, mood anxious. Thoughts linear, logical, no signs of hallucinations or delusions. Reviewed client's symptom tracker, no risk for suicidal ideation, plan, or intent. Client Response/Progress/Benefit: [] Client responded well to session AEB listening to others and sharing thoughts/feelings. Client reported mental positive as showing up to IOP. Client reported additional month of positive as using coping skills to work through daily stressors. Client did not share a current stressor. Appeared to benefit from support from peers. Will continue IOP tx to improve distress tolerance, challenge distortions, and prevent decompensation.
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
--- NOTE | 2025-01-13 11:00 | BH.SGPN.GN ---
Behaviors/Verbalizations/Mental Status: [] Pt alert and oriented, casually dressed and groomed. Eye contact good. Motor activity appropriate. Speech within normal limits. Mood anxious. Affect congruent. Thoughts linear, logical, no signs of hallucinations or delusions. Client Response/Progress/Benefit: [] Pt responded well to session, engaged and taking notes throughout. Worked with group to connect components of the experiential activity with characteristics of healthy and unhealthy relationships. Attentive during psychoeducation about characteristics of healthy, unhealthy, and abusive relationships. Pt reported she has some healthy traits and she wants to work on ?communicating emotions better? Appeared to benefit from identifying current healthy relationship attributes. Pt to continue IOP tx to prevent decompensation, increase healthy coping, increase emotion regulation, and improve functioning to return to work. Narrative Note: []
--- NOTE | 2025-01-13 15:25 | BH.MDN_ITS ---
Multi-Disciplinary Note Note 45-min Individual: Time Started:: 09:15 Date: 01/13/25 Eye Contact:: Good Motor Activity:: Restless Appearance:: Disheveled Speech:: Appropriate Mood:: Anxious and Depressed Affect:: Congruent Thoughts:: Linear, Logical and No evidence of hallucinations/delusions noted Staff Interventions:: thought challenging, CBT techniques, mindfulness skills, strengths perspective and other (dialectical thinking) Risks/Concerns:: Pt denies any suicidal ideations, plan, or intent. Pt denies any thoughts of . Time Stopped:: 10:00
--- NOTE | 2025-01-13 15:25 | BH.MDN ---
Multi-Disciplinary Note Note 45-min Individual: Time Started:: 09:15 Date: 01/13/25 Purpose of session/treatment goals addressed:: To work on goal #2 of pt's tx plan and to provide strengths perspective. Eye Contact:: Good Motor Activity:: Restless Appearance:: Disheveled Speech:: Appropriate Mood:: Anxious and Depressed Affect:: Congruent Thoughts:: Linear, Logical and No evidence of hallucinations/delusions noted Staff Interventions:: thought challenging, CBT techniques, mindfulness skills, strengths perspective and other (dialectical thinking) Client Response:: Pt responded well to session, open to meeting with therapist. Pt reports she is doing better today, but she is feeling very tired. Pt went to visit her sister this weekend and there were many highs and lows. Some of pt's positives included getting to be out in nature, seeing her sister get engaged, and using coping skills to successfully manage a panic attack. Pt identified her lows as losing the necklace that she got when her mom passes away, having several trauma triggers, and not getting good sleep. Reflected on how pt managed these triggers and pt feels she did a good job. Pt stated in the past she would have turned to substances or tried to numb in some way. Pt shared she was able to reach out to healthy people, use calming skills, and remind herself why she does not want to fall back into old patterns. Pt was also able to use self-compassion when she lost the necklace. Pt noted she had the thought that she could smoke weed, but she talked herself out of this. Pt shared she is proud for how she handled herself. Pt shared one thing she keeps getting stuck on is her unresolved relationship trauma. Pt shared she just shuts down when it's brought up and she recognizes this is no longer helping pt. Discussed that pt could reflect on what emotions she wants to suppress when she is triggered and identify what she thinks those emotions are signaling. Risks/Concerns:: Pt denies any suicidal ideations, plan, or intent. Pt denies any thoughts of . Progress Toward Goals/Plan:: Pt is making progress towards her tx goals AEB pt's self-report of maintaining sobriety, using healthy coping skills when triggered, and increased ability to regulate emotions. Pt experienced trauma triggers over the weekend and per her report, she handled these well. Pt continues to struggle with anxiety, PTSD symptoms, and lack of self-confidence. Pt will continue IOP tx to promote use of healthy coping skills, reduce negative self-talk, and reduce disassociation. Time Stopped:: 10:00
--- NOTE | 2025-01-16 08:05 | PCM.BH.PN ---
Intake Vital Signs 12/12/24 11:13 01/16/25 08:08 Height 5 ft 5 in 5 ft 5 in Weight: 190 lb BP 134/88 H Pulse 90 Intake Visit Reasons: Follow-up Allergies amoxicillin (From Augmentin) Adverse Reaction (Verified 12/12/24 10:58) PT UNSURE OF REACTION cephalexin (From Keflex) Adverse Reaction (Verified 12/12/24 10:58) PT UNSURE OF REACTION Cephalosporins Adverse Reaction (Verified 12/12/24 10:58) PT UNSURE OF REACTION ciprofloxacin Adverse Reaction (Verified 12/12/24 10:58) PT UNSURE OF REACTION clavulanic acid (From Augmentin) Adverse Reaction (Verified 12/12/24 10:58) PT UNSURE OF REACTION Penicillins Adverse Reaction (Verified 12/12/24 10:58) PT UNSURE OF REACTION Medications ?Medication ?Instructions ?Recorded ?Confirmed ?Type atomoxetine 25 mg capsule 25 mg PO DAILY 12/12/24 12/12/24 History (Strattera) cyclobenzaprine 5 mg tablet 5 mg PO DAILY PRN muscle spasm 12/12/24 12/12/24 History desvenlafaxine 50 mg 50 mg PO DAILY 12/12/24 12/12/24 History tablet,extended release 24 hr hydroxyzine HCl 25 mg tablet 25 mg PO QHS PRN sleep 12/12/24 12/12/24 History trazodone 50 mg tablet 50 mg PO QHS PRN sleep 12/12/24 12/12/24 History prazosin 2 mg capsule 2 mg PO QHS #30 caps 01/16/25 Rx HPI () History of Present Illness History provided by: patient Chief complaint: Follow-up HPI: Mikala Aguilera is a 24y/o female who presents today for follow up evaluation. Patient reports that things have been not horrible. Feels like medications are doing fine. Denies any significant side effects of medication. Does find that December is a triggering month so has had some more frequent nightmares. Experienced numerous traumas in this month in the past which is what has exacerbated symptoms. Sleep has been somewhat more broken due to nights. Denies any major panic attacks. Does avoid going out in public secondary to anxiety but again worse in recent past due to triggers. Denies SI/HI or AVH. Has had fleeting thoughts of what's the point of life but no suicidal thoughts, intent or plan. Review of systems () Constitutional Denies: fever(s), chills, change in weight or fatigue Eyes Denies: change in vision or blurry vision Ears, Nose, Mouth, Throat Denies: throat pain, neck pain or change in hearing Cardiovascular Denies: chest pain, palpitations or dyspnea Respiratory Denies: dyspnea, cough or wheezing Gastrointestinal Denies: abdominal pain, nausea, vomiting, diarrhea or constipation Genitourinary Denies: dysuria or urinary frequency Musculoskeletal Denies: back pain, neck pain, joint pain or muscle weakness Integumentary/Breast Denies: rash or new lesions Neurological Denies: headache(s), dizziness or confusion Endocrine Denies: fatigue or excessive sweating Hematologic/Lymphatic Denies: easy bruising or easy bleeding Allergic/Immunologic Denies: wheezing Exam Mental Status Exam- Psych () Appearance casually dressed and adequately groomed Attitude other (Cooperative but minimizes to some degree) Activity/Motor Behavior MSE activity/motor behavior finding no adventitious movements Speech regular rate and regular volume Mood euythmic Affect full range Thought Process linear and logical Thought Content no delusions and no hallucinations Suicidal Ideation none Homicidal Ideation none Attention intact Concentration intact Sensorium/Orientation awake and alert Memory/Cognition intact Insight fair Judgement fair Assessment & Plan () Assessment & Plan (1) MDD (major depressive disorder), recurrent episode, severe: Plan: - Continue in IOP - Feels the medications are doing largely well without any significant changes ? We will continue all medications as previously prescribed (2) PTSD (post-traumatic stress disorder): Plan: - Does not wish to discuss trauma history today however she reports doing largely well despite an increase in symptoms (3) Cocaine use disorder, moderate, in early remission: Plan: Continue to follow with [facility], continue to encourage cessation (4) Alcohol use disorder, severe, in early remission: Plan: Continue to follow with [facility], continue to encourage cessation (5) Cannabis use disorder, moderate, in early remission: Plan: Continue to follow with [facility], continue to encourage cessation Charges/Coding Multi Select Codes Behavior Health Behavior Health EST Pt E/M: 00541 Est Pt Level IV
--- NOTE | 2025-01-16 09:05 | BH.SGPN.GN ---
Behaviors/Verbalizations/Mental Status: [] Eye contact is good. Motor activity is appropriate. Appearance is casual. Speech is Appropriate. Mood is dysthymic. Affect is congruent. Thoughts are linear and logical. No evidence of psychosis. Reviewed daily check in sheet and no reports of suicidal ideations or intent. Client Response/Progress/Benefit: [] Pt participated when prompted. Attentive. Daily symptom tracker notes 2/5 for depression and 1/5 for anxiety. Shared with the group that she feels ?tired?. Elaborated slightly regarding nightmares that have impacting her sleep. She is currently taking a medication for the nightmares however they continue to effect her sleep. She was unable to identify any mental health wins or healthy habits. Continues to isolate in her comfort zone. Narrative Note: []
--- NOTE | 2025-01-16 11:15 | BH.SGPN.GN ---
Behaviors/Verbalizations/Mental Status: []Pt alert and oriented, casually dressed and groomed. Eye contact good. Motor activity appropriate. Speech within normal limits. Affect congruent, mood euthymic. Thoughts linear, logical, no signs of hallucinations or delusions. Client Response/Progress/Benefit: [] Pt responded well to session, participating in activity and small group discussion. Group reviewed the rest of the defense mechanisms and discussed how these are adaptive, maladaptive, or somewhere in the hua. Pt's defense mechanisms included suppression, intellectualization, and denial. Shared that these reinforce avoidance and other depressive sx. Pt listened to sheriff sergeant teach different skills to help pt?s cope with or change their defense mechanisms. Pt appeared to benefit from gaining insight to the different defense mechanisms and learning coping skills. Shared wanting to begin practicing more self-compassion. Pt will continue IOP tx to prevent decompensation, improve distress tolerance skills, and increase self-confidence. Narrative Note: []
--- NOTE | 2025-01-20 09:00 | BH.SGPN.GN ---
Behaviors/Verbalizations/Mental Status: [] ?Eye contact is good. Motor activity is appropriate. Appearance is casual. Speech is Appropriate. Mood is anxious, euthymic. Affect is congruent. Thoughts are linear and logical. No evidence of psychosis. Reviewed daily check in sheet and no reports of suicidal ideations or intent. Client Response/Progress/Benefit: [] ?Pt was an active participant in group discussions. Attentive. Did well to identify 2 mental health wins including managing her emotions and focusing on being present after having a difficult morning. Shared she did not want to go into further detail regarding this stressor. Additional win expressed as being able to find more enjoyment in daily activities and described working on assembling an aquarium which has been a fun project for her. Progress noted. Benefited from group support, encouragement, and feedback. Will continue in IOP to prevent decompensation, promote mood stability, and increase healthy coping consistency. Narrative Note: []
--- NOTE | 2025-01-20 11:10 | BH.SGPN.GN ---
Behaviors/Verbalizations/Mental Status: []Eye contact is good. Motor activity is appropriate. Appearance is disheveled. Speech is Appropriate. Mood is depressed. Affect is congruent. Thoughts are linear and logical. No evidence of psychosis. Client Response/Progress/Benefit: [] Pt was an attentive participant in group discussions and actively engaged during experiential activity, doing well to regulate their emotions throughout the activity and work with peers. Attentive during psychoeducation on the 4 A's (Avoid, adapt, alter, accept) of coping with stress. Shared that they would benefit most from challenging her perspective and seeing the good and the bad. Was able to identify the connection between the experiential activity and utilization of stress management skills. Benefited from increased awareness of stress management strategies. Pt will continue IOP to promote use of healthy coping skills, combat distortions, and improve healthy supports. Narrative Note: []
--- NOTE | 2025-01-20 14:22 | BH.MDN_ITS ---
Multi-Disciplinary Note Note 30-min Individual: Time Started:: 10:40 Date: 01/20/25 Purpose of session/treatment goals addressed:: To process current stressor and discuss barriers within relationships. Eye Contact:: Fair Motor Activity:: Appropriate Appearance:: Disheveled Speech:: Soft Mood:: Anxious and Depressed Affect:: Congruent (tearful) Thoughts:: Linear, Logical and No evidence of hallucinations/delusions noted Staff Interventions:: thought challenging, motivational interviewing, CBT techniques, mindfulness skills, strengths perspective and other (decisional balance) Client Response:: Pt responded well to session, open to meeting with therapist. Pt reports she was glad to meet today because she had a recent stressor with her father. Pt shared she had a bad dream that involved her father. Pt and her father have been working on their relationship lately since pt's mother . Pt reports this relationship continues to be complicated and pt still feels like she has to walk on eggshells around him. Pt stated told her father about the dream as a way to connect and he was very defensive and dismissive to pt per her report. Pt became tearful and sharing that it feels like her father is constantly choosing his girlfriend over pt and he is paranoid. Pt stated he has his own mental health issues as well and he does not get treatment for this. Pt has brought up her relationship with her father in previous sessions and how she feels torn about the relationship and how the relationship negatively impacts pt most of the time. Pt and therapist discussed a decisional balance to help pt see the pros and cons of this rel ationship and how it impacts pt. Pt reminded that although she deserves healthy relationships and boundaries, it is understandable why following through with this would be difficult. Pt was less tearful by the end of session. Risks/Concerns:: Pt denies any suicidal ideation, plan, or intent. Pt denies any thoughts of . Progress Toward Goals/Plan:: Pt continues to make progress towards tx goals AEB pt's report of maintained sobriety and report of using healthier coping skills daily. Pt is currently struggling with conflicted feelings about boundary setting with her father. In the past a trigger like this would have led to use which demonstrates progress. Pt will continue IOP tx to promote use of healthy coping skills and establish aftercare. Time Stopped:: 11:10
--- NOTE | 2025-01-23 09:05 | BH.SGPN.GN ---
Behaviors/Verbalizations/Mental Status: [] Pt alert and oriented, neatly dressed and groomed. Eye contact good. Motor activity appropriate. Speech within normal limits. Affect incongruent-laughing about her distress, mood emotionally exhausted. Thoughts linear, logical, no signs of hallucinations or delusions. Reviewed pt?s symptom tracker, no risk for suicidal ideation, plan, or intent 01/23/25. Client Response/Progress/Benefit: []Pt was an active participant in group discussions. Attentive. Able to identify mental health wins including getting to IOP today despite wanting to isolate and working on her aquarium. Pt's stressor today is ?my car broke and I?ve been crying so I?m emotionally exhausted.? The group offered pt encouragement and emotional support which pt reported was helpful. Pt is feeling sleepy and emotionally exhausted.? this morning. Pt receptive to feedback from peers. Benefited from group support, encouragement, and feedback. Progress noted. Will continue IOP tx to promote use of healthy coping skills, reduce negative thinking patterns, and improve distress tolerance. Narrative Note: []
--- NOTE | 2025-01-23 10:15 | BH.SGPN.GN ---
Behaviors/Verbalizations/Mental Status: [] Client alert and oriented, casual appearance. Eye contact good. Motor activity appropriate. Speech within normal limits. Affect congruent, mood euthymic. Thoughts linear, logical, no signs of hallucinations or delusions. Client Response/Progress/Benefit: []Client responded well to session AEB listening attentively to peers, taking notes, and engaging in discussions. Client attentive to psychoeducation about different styles of decision making. Client engaged in discussion about internal and external influences that impact decision making. Group identified internal influences that impact decision making to include self-talk, anxiety, mood, and past experiences. Group identified external influences that impact decision making to include opinions from others, peer pressure, societal or cultural norms, and finances. Client seemed to benefit from increased awareness and understanding of different decision making styles. Plan is for client to continue IOP to promote healthy coping skills, continue working on challenging distorted thoughts, and prevent decompensation.
--- NOTE | 2025-01-23 11:15 | BH.SGPN.GN ---
Behaviors/Verbalizations/Mental Status: []Pt alert and oriented, casually dressed and groomed. Eye contact good. Motor activity appropriate. Speech within normal limits. Affect congruent, mood euthymic. Thoughts linear, logical, no signs of hallucinations or delusions. Client Response/Progress/Benefit: [] Pt took notes and contributed to group discussions and was an active participant in activity. Pt engaged in continued discussion on decision making styles and pros and cons of each. Pt actively participated in experiential activity in which the group was given a scenario and prompted to decide what they would do. Did well to actively reflect on the various factors influencing their identified decisions as well. Pt worked with group to then identify several strategies for improving healthy decision making skills. Pt shared wanting to work on improving ability to use journaling before making decisions. Pt appeared to benefit from learning about building healthy decision making processes. Will continue IOP tx to improve mood stability, increase self-advocacy, and prevent decompensation. ? Narrative Note: []
--- NOTE | 2025-01-27 09:05 | BH.SGPN.GN ---
Behaviors/Verbalizations/Mental Status: [] ?Eye contact is good. Motor activity is appropriate. Appearance is casual. Speech is Appropriate. Mood is stressed. Affect is congruent. Thoughts are linear and logical. No evidence of psychosis. Reviewed daily check in sheet and no reports of suicidal ideations or intent. Client Response/Progress/Benefit: [] ?Pt was an active participant in group discussions. Attentive. Did well to identify 2 mental health wins including managing to get through several difficult phone calls this morning. Explained that her ex violated the no contact order and she has been communicating with his associate loan officer to address this as a result Shared using thought challenging and trying to focus on being present to help support her. Additional win noted as getting to group today despite car issues, shared plans to have a friend look at it this afternoon. Progress noted. Benefited from group support, encouragement, and feedback. Will continue in IOP to prevent decompensation, promote mood stability, and increase healthy coping consistency. Narrative Note: []
--- NOTE | 2025-01-27 10:10 | BH.SGPN.GN ---
Behaviors/Verbalizations/Mental Status: [] Eye contact is good. Motor activity is appropriate. Appearance is casual. Speech is Appropriate. Mood is euthymic. Affect is constricted. Thoughts are linear and logical. No evidence of psychosis. Client Response/Progress/Benefit: [] Pt participated at times during group discussions and interactions. Attentive during psychoeducation on automatic negative thoughts (ANTS) and cognitive distortions. This group was very psychoeducation heavy. Pt did participated during interactive discussions in which peers defined and gave examples of ANTS. Participated during interactive discussion on definition of cognitive distortions and examples related to the 10 cognitive distortions presented. Client stated top three distortions she uses are magnification, all or nothing, and disqualifying the positives. Benefited from increased insight and awareness of cognitive distortions and their impact on emotions and behaviors. Will continue in IOP to promote use of healthy coping skills, challenge negative thoughts, and prevent decompensation.
--- NOTE | 2025-01-27 11:10 | BH.SGPN.GN ---
Behaviors/Verbalizations/Mental Status: []Pt alert and oriented, casually dressed and groomed. Eye contact good. Motor activity appropriate. Speech within normal limits. Affect congruent, mood anxious. Thoughts linear, logical, no signs of hallucinations or delusions. Client Response/Progress/Benefit: [] Client responded well to session AEB input and examples during group activity. Group discussed and practiced methods of reframing cognitive distortions. Client participated in identifying cognitive distortions when examples were provided. Client discussed in group the different strategies to overcome the distortions. Client identified connecting with using positive affirmations as a strategy. Will continue tx to reinforce healthy coping skills and further improve mood. Narrative Note: []
--- NOTE | 2025-01-27 13:45 | BH.AFTERPLAN ---
Aftercare Plan Demographics Treatment End Date:: 01/30/25 Psychiatrist:: Gee Vallejo Psychiatrist Office #:: [id number] [facility]/IOP Therapist:: Leah Higgins Therapist Phone #:: [phone] Medications Home Medications atomoxetine 25 mg capsule (Strattera) 25 mg PO DAILY 12/12/24 cyclobenzaprine 5 mg tablet 5 mg PO DAILY PRN muscle spasm 12/12/24 desvenlafaxine 50 mg tablet,extended release 24 hr 50 mg PO DAILY 12/12/24 hydroxyzine HCl 25 mg tablet 25 mg PO QHS PRN sleep 12/12/24 trazodone 50 mg tablet 50 mg PO QHS PRN sleep 12/12/24 prazosin 2 mg capsule 2 mg PO QHS #30 caps 01/16/25 Plan Details Progress/Aftercare Plan Details:: Mikala has responded well to treatment as evidenced by Mikala consistently attending IOP sessions and her reduction of DSM-5 scores since admission. Mikala was always attentive and receptive to learning during group and individual sessions. Mikala actively applies coping skills outside of IOP and reports her mood is improved and she is functioning better than she was several months ago. Mikala's overall symptom reduction is 55% since admission with anger reducing by 100% , depression decreasing by 50%, PTSD symptoms decreasing by 50%, and anxiety decreasing by 56%. Mikala has increased her ability to manage her stress, triggers, and negative thought patterns. Strategies for Success:: 1. Opposite action! Continue to break that cycle of anger and depression by acting differently than your emotion wants you to. 2. Remember to ride the wave. Slow down and PAUSE. Delay, distract, decide. 3. self-care! You deserve to take time for you and you also deserve to face the not so fun self-care 4. Self-compassion! You are human and you will make mistake?BUT that doesn?t mean you are a failure or not good enough. Give yourself credit for all the wonderful things you do. 5. Self-advocacy! You deserve happiness, peace, and respect like ANYONE else. 6. Practicing deep breathing, calming self-talk, and grounding when there is a PTSD trigger 7. Practice positive self-talk and keep track of your wins. 8. Remember progress isn?t linear! You may have a setback or bump in the road, but that doesn?t mean you?ve lost all progress. 9. Keep aware of pitfalls and refer back to your binder/notes when needed 10. Continue to practice assertive communication and advocate for yourself. Appointments Appointments/Referrals to Other Services:: 1. Follow up with Dr. Vallejo for medication management. Call or stop in the [facility] to get an appointment. They are aware that you want to get services there. 2. Follow up with Beena at [facility] for individual therapy.
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
--- NOTE | 2025-01-28 09:05 | BH.SGPN.GN ---
Behaviors/Verbalizations/Mental Status: [] Eye contact is good. Motor activity is appropriate. Appearance is casual. Speech is Appropriate. Mood is anxious. Affect is congruent. Thoughts are linear and logical. No evidence of psychosis. Reviewed daily check in sheet and no reports of suicidal ideations or intent. Client Response/Progress/Benefit: [] Pt was an active participant in group discussions. Attentive. Daily symptom tracker notes limited distress. Shared with the group that she had a panic attack and was overwhelmed yesterday. Elaborated on the events and thoughts that led to the attack. ? Got lost in my head?. ?Dissociated?. She was able to utilize internal and external coping strategies which proved beneficial. She was proud of herself for ? making it through? and not allowing the panic to shut her down. Progress noted. Benefited from group support, encouragement, and feedback. Will continue in IOP to prevent decompensation, stabilize mood, and improve functioning to return to work Narrative Note: []
--- NOTE | 2025-01-28 10:10 | BH.SGPN.GN ---
Behaviors/Verbalizations/Mental Status: [] Eye contact is good. Motor activity is appropriate. Appearance is casual. Speech is Appropriate. Mood is content. Affect is congruent. Thoughts are linear and logical. No evidence of psychosis. Client Response/Progress/Benefit: [] Client engaged participant at times during group session as evidenced by contributions during group discussions, appearing to listen to others, and taking notes. Client engaged in discussion about barriers that keep people from having difficult confrontations. Group identified potential reasons individuals avoid difficult conversations which included; feeling uncomfortable, reaction of others, fear, and avoiding conflict. Group also identified benefits to having crucial conversations. Pt identified things they do that impact their communication shutting down. Client seemed to benefit from increased awareness and education about importance of having difficult conversations and recognizing the impact of avoiding such conversations. Client to continue IOP to prevent decompensation, increase healthy coping, and improve functioning. Narrative Note: []
--- NOTE | 2025-01-28 11:10 | BH.SGPN.GN ---
Behaviors/Verbalizations/Mental Status: [] Eye contact is good. Motor activity is appropriate. Appearance is casual. Speech is Appropriate. Mood is euthymic. Affect is full. Thoughts are linear and logical. Client Response/Progress/Benefit: [] Pt was an active participant, engaged in activities and discussion. Pt able to identify ways they negatively contribute to crucial conversations and pt was engaged during psychoeducation of the different ways to build interpersonal effectiveness skills. Pt and peers practiced mirroring and active listening with assigned partners. Group reviewed [employer] and used the handout to help map out how they would like a crucial conversation in their life to go. Pt identified an upcoming crucial conversation centered around asking for help and completed worksheet adhering to [employer] strategies . Pt appeared to benefit from learning and practicing interpersonal effectiveness skills. Pt will continue IOP tx to maintain safety, increase healthy coping, and improve functioning. Narrative Note: []
== END 2025-01-29 23:59 ==
LOC: BHIOP 07:17
PROVIDERS: Referring Provider Internal Medicine; Visit Provider Internal Medicine
DX: F33.2 Major depressive disorder, recurrent severe without psychotic features (principal); F43.10 Post-traumatic stress disorder, unspecified; F10.91 Alcohol use, unspecified, in remission; F12.91 Cannabis use, unspecified, in remission; F14.91 Cocaine use, unspecified, in remission
CPT/HCPCS: H2012; H2020; S9480; 90832; 90834

== ENCOUNTER 2025-01-30 07:49 | Outpatient (RCR) | payer MEDICAID, SELFPAY ==
--- NOTE | 2025-01-30 09:05 | BH.SGPN.GN ---
Behaviors/Verbalizations/Mental Status: [] Eye contact is good. Motor activity is appropriate. Appearance is casual. Speech is Appropriate. Mood is euthymic. Affect is full. Thoughts are linear and logical. No evidence of psychosis. Reviewed daily check in sheet and no reports of suicidal ideations or intent. Client Response/Progress/Benefit: [] Pt was an active participant in group discussions. Attentive. Daily symptom tracker note no distress. Shared with the group that she is set to discharge successfully from [facility] today. She reports improved mental health since starting IOP with increase confidence in herself to manage upcoming struggles. She is hoping to return to work soon and feels ? excited and nervous?. She is linked with aftercare. Briefly discussed group topics which she found helpful in IOP. Progress noted. Will be discharged from [facility] today. Narrative Note: []
--- NOTE | 2025-01-30 10:10 | BH.SGPN.GN ---
Behaviors/Verbalizations/Mental Status: [] Eye contact is fair. Motor activity is appropriate. Appearance is casual. Speech is Appropriate. Mood is euthymic. Affect is congruent. Thoughts are linear and logical. No evidence of psychosis. Client Response/Progress/Benefit: [] Pt was engaged and participating throughout, providing input and taking notes. Attentive during psychoeducation on anxiety and cognitive triangle. Participated in an interactive discussion on defining anxiety and identifying cognitive and physiological symptoms of anxiety. The group discussed helpful vs harmful anxiety. Pt identified their physical/physiological signs of anxiety. Benefited from increased awareness and insight on anxiety and its impact. Will continue in IOP to prevent decompensation, challenge distortions, and promote healthy coping skills.
--- NOTE | 2025-01-30 14:53 | BH.DS_ITS ---
Discharge Summary Demographics Date of Admission:: 12/08/24 Discharge Date: 01/30/25 Presenting Problems at Admission:: Pt is a 25-year-old female with who was referred to [facility] tx by her outpatient therapist due to self-injurious behaviors and mental health symptoms impacting pt's sobriety. Pt has history of PTSD, MDD, and polysubstance abuse. At admission, pt endorses increased sleep, decreased appetite, low energy, low motivation, hopelessness, isolation, avoidance, and an hedonia. Pt also reports panic attacks twice weekly. Pt denies active SI, but she shared that she has almost daily thoughts of wishing she would not wake up. Pt's symptoms are impacting her ability to maintain sobriety and engage in ADLs. Discharge Diagnoses:: MDD (major depressive disorder), recurrent episode, severe F33.2; PTSD; Cocaine use disorder, moderate, in early remission; Alcohol use disorder, severe, in early remission; Cannabis use disorder, moderate, in early remission. Reason for Discharge:: Pt has accomplished her tx goals AEB her reduction of DMS-5 symptoms for anxiety, her self-report of improved functioning and mood, and improved outlook. Pt no longer meets criteria for IOP level of care and will discharge to outpatient counseling. Treatment Progress During Treatment & Response: Pt has responded well to treatment as evidenced by Pt consistently attending IOP sessions and her reduction of DSM-5 scores since admission. Pt was always attentive and receptive to learning during group and individual sessions. Pt actively applies coping skills outside of IOP and reports her mood is improved and she is functioning better than she was several months ago. Pt's overall symptom reduction is 55% since admission with anger reducing by 100% , depression decreasing by 50%, PTSD symptoms decreasing by 50%, and anxiety decreasing by 56%. Pt has increased her ability to manage her stress, triggers, and negative thought patterns. Issues Still to be Addressed:: Managing her PTSD symptoms, setting boundaries, self-compassion and self-love, and increasing social supports. Discharge Recommendations/Instructions:: Pt will follow up with Beena at [facility] for individual therapy. Pt sees Beena once a week. Pt declined doing IOP aftercare at this time as pt would like a break from counseling after completing two IOPs. Pt requested to see Dr. Vallejo for medication management and pt plans to call and schedule an appointment next week. Discharge Handout
== END 2025-01-30 11:30 | disposition home or self-care (01) ==
LOC: BHIOP 07:49
PROVIDERS: Referring Provider Internal Medicine; Visit Provider Internal Medicine
DX: F33.2 Major depressive disorder, recurrent severe without psychotic features (principal); F43.10 Post-traumatic stress disorder, unspecified; F10.91 Alcohol use, unspecified, in remission; F12.91 Cannabis use, unspecified, in remission; F14.91 Cocaine use, unspecified, in remission
CPT/HCPCS: H2012

== ENCOUNTER → 2025-02-19 | Outpatient (CLI) | payer MEDICAID, SELFPAY ==
[2025-02-19 12:34] LABS: Hematocrit 40.5 % (37-47); Hemoglobin 13.4 g/dL (12.0-15.0); Immature Granulocytes Count 0.020 X10^3/uL (0.0-0.0); Mean Corp Hgb Conc 33.1 g/dL (32-36); Mean Corpuscular Volume 88.2 fL (81-99); Mean Platelet Vol. 10.1 fl (6.2-12.0); NRBC Flagged by Analyzer 0 % (0-5); Platelet Count 260 K/mm3 (150-450); RBC Distribution Width CV 12.3 % (11.6-14.6); RBC Distribution Width SD 39.4 fl (35.1-43.9); Red Blood Count 4.59 M/mm3 (4.2-5.4); White Blood Count 7.0 K/mm3 (4.4-11.0)
[2025-02-19 13:43] LABS: AST(SGOT) 20 U/L (<=31); Alanine Aminotransfer ALT/SGPT 16 U/L (<=34); Albumin, Serum 3.7 g/dL (3.5-5.0); Alkaline Phosphatase 46 U/L (35-104); Anion Gap 12 (5-15); BUN 7 mg/dL (4-19); BUN/Creat Ratio 9.3 RATIO (10-20); Calcium,Total 8.8 mg/dL (7.6-11.0); Carbon Dioxide 21.1 mmol/L (21.0-32.0); Chloride 108 mmol/L (98-108); Ferritin 54 ng/mL (22-378); Globulin 2.8 g/dL (2.2-4.2); Glucose 92 mg/dL (70-99); Iron 150 ug/dL (50-170); Iron Binding Capacity,Total 365 ug/dL (250-450); Iron Binding Capacity,Unsat 215 ug/dL (228-428); Magnesium 2.1 mg/dL (1.5-2.2); Potassium 3.6 mmol/L (3.3-5.1)
== END | disposition home or self-care (01) ==
LOC: VSLAB 08:35
PROVIDERS: Referring Provider Nurse Practitioner Family; Visit Provider Nurse Practitioner Family
DX: D50.9 Iron deficiency anemia, unspecified (principal); R51.9 Headache, unspecified
CPT/HCPCS: 36415; 80053; 82728; 83540; 83550; 83735; 85025